=== PATIENT | female | born 1985 | race Caucasian/White ===

== ENCOUNTER → 2018-08-03 11:40 | Outpatient (CLI) | payer OTHER, SELFPAY ==
[2018-08-06 11:40] LABS: HPV Reflexed? NOT INDICATED
== END ==
PROVIDERS: Visit Provider Obstetrics & Gynecology
DX: Z12.4 Encounter for screening for malignant neoplasm of cervix (principal)
CPT/HCPCS: 87624; 88175; G0145

== ENCOUNTER 2019-09-04 23:32 | Emergency (ER) | payer OTHER, SELFPAY ==
[2019-09-04 23:34] VITALS: BP 135/95; PULSE 74; RESP 20; TEMP 36.6; O2SAT 100; BMI 28.0
--- NOTE | 2019-09-04 23:35 | ED.RN ---
NO OLD EKGS IN MUSE
--- NOTE | 2019-09-05 00:04 | EKG12_ITS ---
Test Reason : CP Blood Pressure : / mmHG Vent. Rate : 060 BPM Atrial Rate : 060 BPM P-R Int : 148 ms QRS Dur : 088 ms QT Int : 406 ms P-R-T Axes : 047 063 046 degrees QTc Int : 406 ms Normal sinus rhythm Normal ECG Confirmed by THANG SANTOS ([id number]), editorial project manager JERRY BHATT ([id number]) on 09/07/2019 2:52:39 PM Referred By: KAREN Confirmed By:THANG SANTOS
--- NOTE | 2019-09-05 00:06 | ED.VIS.CHEST ---
History of Present Illness Chief Complaint: Chest Pain Informant: Patient Onset: Hours - 2-3 Timing: Continuous Quality: Dull Location: Left Chest - without radiation Current Severity: Mild Maximum Severity: Moderate Worsened By: Breathing - only deep breathing, - - when rolled over and lied on left side was worse. Not Worsened By: Exertion, Movement of Arm, Movement of Torso, Eating, Palpation Relieved By: Remaining Still - and somewhat better by sitting forwards Associated Symptoms: Negative for: Nausea, Vomiting, Diaphoresis, Dyspnea, Cough, Fever, Lightheadedness, Acid Reflux, Palpitations Narrative: Patient is healthy, non-smoker, does not take control, has been having this left-sided chest discomfort for a couple hours. No radiation, no jaw, back, arm pain. No abdominal discomfort. No nausea or vomiting or sweats. No palpitations or near syncope. No leg pain or swelling. No history of DVT or PE, recent travel, hospitalization, or surgery. 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 Denies: Palpitations Respiratory: Denies: Dyspnea, Cough, Dyspnea on exertion Gastrointestinal: Denies: Abdominal pain, Nausea, Vomiting, Diarrhea, Melena, Hematochezia Genitourinary: Denies: Dysuria, Hematuria, Frequency Musculoskeletal: Denies: Back pain, Swelling, Extremity Pain Skin: Denies: Rash, Wounds Neurological: Denies: Headache, Weakness, Numbness Physical Exam Vital Signs/Narrative: Vital Signs Temp Pulse Resp BP Pulse Ox 09/04/19 23:34 97.9 F 74 20 H 135/95 H 100 Inital Vital Signs reviewed: Yes General: Well nourished, Well developed, No Acute Distress - Well-appearing, conversive, pleasant Head: Normocephalic, Atraumatic Eyes: Perrl, EOMI ENT: Moist mucous membranes, No rhinorrhea Neck: Supple, Nontender, No JVD Cardiovascular: Regular rate, Regular rhythm, No murmurs, Normal S1, Normal S2. Negative for: Tachycardia Respiratory: No distress, CTA bilaterally, Chest nontender Abdomen: Soft, Nontender, Nondistended, Normal bowel sounds Back: Nontender, Normal Inspection Extremities: Nontender, No edema. Negative for: Calf Tenderness Skin: Normal color, No rash, No Trauma Neurological: Alert, Oriented x3, Cranial nerves II-XII grossly intact, Normal Strength, Normal Sensation Psychological: Normal affect, Normal Mood Diagnostic/Tx/Re-eval Laboratory Tests 09/04/19 09/04/19 Range/Units 23:36 23:36 WBC 9.7 (4.4-11.0) K/mm3 RBC 4.66 (4.2-5.4) M/mm3 Hgb 12.6 (12.0-15.0) g/dL Hct 40.4 (37-47) % MCV 86.7 (81-99) fL MCH 27.0 (27.0-32.0) pg MCHC 31.2 L (32-36) g/dL RDW Std Deviation 45.5 H (35.1-43.9) fl RDW Coeff of Serina 14.3 (11.6-14.6) % Plt Count 302 (150-450) K/mm3 MPV 11.0 (6.2-12.0) fl Immature Gran % (Auto) 0.200 (0.0-0.9) % Neut % (Auto) 48.2 (47-70) % Lymph % (Auto) 40.2 (19-41) % [place] % (Auto) 8.6 (0-10) % Eos % (Auto) 2.4 (0-5) % Baso % (Auto) 0.4 (0-1) % Absolute Neuts (auto) 4.7 (2.0-7.7) X10^3/uL Absolute Lymphs (auto) 3.90 (0.83-4.51) X10^3/uL Nucleated RBC % 0 (0-5) % Sodium 139 (136-145) mmol/L Potassium 3.6 (3.5-5.1) mmol/L Chloride 107 (98-107) mmol/L Carbon Dioxide 27.0 (21.0-32.0) mmol/L Anion Gap 5 (5-15) BUN 13 (7-18) mg/dL Creatinine 0.78 (0.55-1.02) mg/dL Estim Creat Clear Calc 83.27 ml/min Est GFR (MDRD) Af Amer 108 (>60) mL/min Est GFR (MDRD) Non-Af 89 (>60) mL/min BUN/Creatinine Ratio 16.7 (10-20) RATIO Glucose 93 (74-106) mg/dL Calcium 9.1 (8.5-10.1) mg/dL Troponin I < 0.015 (<0.045) ng/mL - Rhythm Strip Rhythm Strip: Sinus Rhythm Rate: 60 Ectopy: None - EKG Initial EKG Interpretation: Sinus Rhythm, No Acute Injury Pattern, - - Normal EKG Treatment: GI Cocktail MARIEL Risk: No Positive MARIEL Elements Score: 0 - Medical Decision Making PERC score is 0, no further testing is necessary to rule out pulmonary embolus at this time for the symptoms. Patient refused her x-ray, since her labs are normal and her EKG is normal she is reassured and wants to leave. We discussed the possibilities and treatments of those possibilities, she is okay with this and does not want further work-up and will follow-up if she gets worse or return. She is comfortable with that plan. ED Disposition - Plan for ED Patient: Disposition: Home or Assisted Living Diagnosis: Chest pain, non-cardiac Instructions: CHEST PAIN, NonCardiac Referrals: Doctor,Your [STAFF PHYSICIAN] - 3-5 Days if not improving
[2019-09-05 00:12] LABS: Absolute Neutrophil Count 4.7 X10^3/uL (2.0-7.7); Basophil# 0.04 X10^3/uL; Basophil% 0.4 % (0-1); Eosinophil# 0.23 X10^3/uL; Eosinophils% 2.4 % (0-5); Hematocrit 40.4 % (37-47); Hemoglobin 12.6 g/dL (12.0-15.0); Lymphocyte % 40.2 % (19-41); Mean Corp Hgb Conc 31.2 g/dL (32-36); Mean Corpuscular Volume 86.7 fL (81-99); Monocyte# 0.83 X10^3/uL; Monocyte% 8.6 % (0-10); NRBC Flagged by Analyzer 0 % (0-5); Neutrophil # 4.68 X10^3/uL (2.7-7.7); Neutrophil % 48.2 % (47-70); Platelet Count 302 K/mm3 (150-450); RBC Distribution Width CV 14.3 % (11.6-14.6); RBC Distribution Width SD 45.5 fl (35.1-43.9); Red Blood Count 4.66 M/mm3 (4.2-5.4); White Blood Count 9.7 K/mm3 (4.4-11.0)
[2019-09-05 00:28] LABS: Anion Gap 5 (5-15); BUN 13 mg/dL (7-18); BUN/Creat Ratio 16.7 RATIO (10-20); Calcium,Total 9.1 mg/dL (8.5-10.1); Chloride 107 mmol/L (98-107); Creatinine, Serum 0.78 mg/dL (0.55-1.02); EST Glomerular Filtration Rate 89 mL/min (>60); Est Glom Filt Rate - Afr Amer 108 mL/min (>60); Estimated Creatinine Clearance 83.27 ml/min; Glucose 93 mg/dL (74-106); Potassium 3.6 mmol/L (3.5-5.1); Sodium Level 139 mmol/L (136-145)
[2019-09-05 00:38] VITALS: BP 112/87; PULSE 69; RESP 16; O2SAT 96
[2019-09-05] MEDS: Mag Hydrox/Al Hydrox/Simeth 30 ML UDC PO (00:38)
== END 2019-09-05 00:42 | disposition home or self-care (01) ==
LOC: ED 09-05 00:40
PROVIDERS: Emergency Provider Emergency Medicine
DX: R07.89 Other chest pain (principal)
CPT/HCPCS: 80048; 84484; 85025; 93005; 99285; A4216